=== PATIENT | female | born 2000 | race Caucasian/White ===

== ENCOUNTER 2022-07-21 18:01 | Emergency (ER) | payer SELFPAY | END 2022-07-21 23:11 | disposition left against medical advice (07) | LOC: ER 18:01 | DX: Z53.21 Procedure and treatment not carried out due to patient leaving prior to being seen by health care provider (principal) ==

== ENCOUNTER 2024-04-12 02:48 | Emergency (ER) | payer MEDICAID, OTHER ==
[~2024-04-12] VITALS: Ht 162.6 cm; Wt 63.5 kg
[2024-04-12] MEDS ORDERED: LIDOCAINE 2%-EPI 1:100,000 20 ML VIAL ONE (03:28)
[2024-04-12] MEDS: LIDOCAINE 2%-EPI 1:100,000 20 ML VIAL IJ ONE (04:11)
[2024-04-12] MEDS ORDERED: NEOMY/BACITRA/POLYMYXIN B OINT UD PACKET TP ONE (04:57)
[2024-04-12] MEDS: NEOMY/BACITRA/POLYMYXIN B OINT UD PACKET TP ONE (04:58)
[2024-04-12 05:29] VITALS: BP 129/74; TEMP 98.6; O2SAT 98
== END 2024-04-12 05:30 | disposition home or self-care (01) ==
LOC: ER 02:55
DX: S81.011A Laceration without foreign body, right knee, initial encounter (principal); W26.8XXA Contact with other sharp object(s), not elsewhere classified, initial encounter; Y93.89 Activity, other specified; Y92.89 Other specified places as the place of occurrence of the external cause; Y99.8 Other external cause status
CPT/HCPCS: A4606; A4663

== ENCOUNTER 2024-04-14 15:07 | Emergency (ER) | payer MEDICAID ==
[~2024-04-14] VITALS: Ht 162.6 cm; Wt 54.4 kg
[2024-04-14] MEDS ORDERED: NEOMY/BACITRA/POLYMYXIN B OINT UD PACKET TP ONE (15:22)
[2024-04-14 15:47] VITALS: BP 112/70; TEMP 98; O2SAT 99
== END 2024-04-14 15:48 | disposition home or self-care (01) ==
LOC: ER 15:08
DX: S89.81XA Other specified injuries of right lower leg, initial encounter (principal); Z48.00 Encounter for change or removal of nonsurgical wound dressing; X58.XXXA Exposure to other specified factors, initial encounter; Y93.89 Activity, other specified; Y92.89 Other specified places as the place of occurrence of the external cause; Y99.8 Other external cause status
CPT/HCPCS: A4606; A4663

== ENCOUNTER 2024-04-21 08:00 | Emergency (ER) | payer MEDICAID ==
[~2024-04-21] VITALS: Ht 162.6 cm; Wt 63.5 kg
[2024-04-21 08:42] VITALS: BP 119/70; O2SAT 99
== END 2024-04-21 08:42 | disposition home or self-care (01) ==
LOC: ER 08:00
DX: S81.011D Laceration without foreign body, right knee, subsequent encounter (principal); X58.XXXD Exposure to other specified factors, subsequent encounter
CPT/HCPCS: A4606; A4663